=== PATIENT | female | born 1940 | race Caucasian/White ===

== ENCOUNTER 2017-09-22 11:33 | Emergency (ER) | payer OTHER ==
[~2017-09-22] VITALS: Ht 180.3 cm; Wt 127.0 kg
[~2017-09-22 11:33] MED LIST: LIDOCAINE TOP; MOT800 PO; NEXIUM PO; PROINH; V10 PO; XAN5 PO; ZOL50 PO
[2017-09-22 11:40] VITALS: Ht 180.3 cm; Wt 127.0 kg
[2017-09-22 12:29] LABS: microscopic required? NO
[2017-09-22 12:41] LABS: BASOPHIL % 0.6 % (0-2); PLATELET COUNT 202 x10^3mcL (130-400); RED CELL DISTRIBUTION WIDTH 14.4 % (11.5-14.5)
[2017-09-22 12:52] LABS: CALCIUM 8.6 mg/dL (8.5-10.1); CARBON DIOXIDE 35.6 mmol/L (21-32); CHLORIDE SERUM 109 mmol/L (98-107); CREATININE SERUM 0.8 mg/dL (0.6-1.0); GLUCOSE SERUM 109 mg/dL (74-106); POTASSIUM SERUM 4.7 mmol/L (3.5-5.1); SODIUM SERUM 147 mmol/L (136-145)
[2017-09-22 12:56] LABS: ALBUMIN 3.2 g/dL (3.4-5.0); ALKALINE PHOSPHATASE 84 U/L (46-116); ALT/SGPT 12 U/L (14-59); AST/SGOT 13 U/L (15-37); BILIRUBIN TOTAL 0.32 mg/dL (0.20-1.00); TOTAL PROTEIN, SERUM 6.9 g/dL (6.4-8.2)
[2017-09-22 13:11] LABS: UA SPECIFIC GRAVITY <=1.005 (1.005-1.035); urine erythrocyte NEGATIVE (NEGATIVE)
[2017-09-22] MEDS ORDERED: NEURONTIN300 MG GT (13:44)
[2017-09-22] MEDS ORDERED: XAN1 PO (13:45)
[2017-09-22] MEDS ORDERED: ZOLOFT100 MG PO (13:45)
[2017-09-22 15:06] VITALS: BP 174/89
== END 2017-09-22 15:06 | disposition home or self-care (01) ==
LOC: ED 11:33
PROVIDERS: Emergency Medicine
DX: M51.34 Other intervertebral disc degeneration, thoracic region (principal); I10 Essential (primary) hypertension; J45.909 Unspecified asthma, uncomplicated; F41.9 Anxiety disorder, unspecified; F32.9 Major depressive disorder, single episode, unspecified; K21.9 Gastro-esophageal reflux disease without esophagitis; G62.9 Polyneuropathy, unspecified; M81.0 Age-related osteoporosis without current pathological fracture; Z88.2 Allergy status to sulfonamides; Z88.1 Allergy status to other antibiotic agents; Z88.5 Allergy status to narcotic agent
CPT/HCPCS: J1885; J2405; J3010; J7030

== ENCOUNTER 2018-05-08 06:30 | Inpatient (IN) | payer OTHER ==
[~2018-05-08] VITALS: Ht 177.8 cm; Wt 133.4 kg
[~2018-05-08 06:30] MED LIST changes: +NEURONTIN300 MG GT; +XAN1 PO; +ZOLOFT100 MG PO
[2018-05-08 06:40] VITALS: Ht 177.8 cm; Wt 133.4 kg
[2018-05-08 07:16] LABS: BASOPHIL % 0.6 % (0-2); PLATELET COUNT 188 x10^3mcL (130-400); RED CELL DISTRIBUTION WIDTH 13.4 % (11.5-14.5)
[2018-05-08 07:36] LABS: CALCIUM 7.9 mg/dL (8.5-10.1); CARBON DIOXIDE 31.7 mmol/L (21-32); CHLORIDE SERUM 106 mmol/L (98-107); CREATININE SERUM 0.9 mg/dL (0.6-1.0); GLUCOSE SERUM 126 mg/dL (74-106); POTASSIUM SERUM 3.8 mmol/L (3.5-5.1); SODIUM SERUM 142 mmol/L (136-145)
[2018-05-08 07:46] LABS: ALKALINE PHOSPHATASE 77 U/L (46-116); ALT/SGPT 15 U/L (14-59); AST/SGOT 9 U/L (15-37); BILIRUBIN TOTAL 0.17 mg/dL (0.20-1.00); C REACTIVE PROTEIN 1.2 mg/dL (<=0.9); TOTAL PROTEIN, SERUM 6.6 g/dL (6.4-8.2)
[2018-05-08 07:47] LABS: T3 TOTAL 1.13 ng/mL
[2018-05-08 07:48] LABS: FREE T4 0.73 ng/dL (0.76-1.46); FREE THYROXINE INDEX 2.1 ug/dL (1.4-4.5); T4(THYROXINE) 5.9 ug/dL (4.7-13.3)
[2018-05-08 07:50] LABS: CK-MB 0.8 ng/mL (0-3.6)
[2018-05-08 07:51] LABS: ALBUMIN 2.8 g/dL (3.4-5.0)
[2018-05-08 09:53] LABS: ERYTHROCYTE SED RATE 48 mm/hr (0-30)
[2018-05-08] MEDS ORDERED: ZANAFLEX CAPSULE4 MG (12:19)
[2018-05-08] MEDS ORDERED: LISINOPRIL5 MG PO (12:19)
[2018-05-08 13:10] VITALS: BP 148/56
[2018-05-08 15:00] VITALS: BP 148/56
[2018-05-08 16:23] LABS: microscopic required? NO
[2018-05-08 16:26] LABS: UA SPECIFIC GRAVITY >=1.030 (1.005-1.035); urine erythrocyte NEGATIVE (NEGATIVE)
[2018-05-08 16:34] VITALS: BP 155/61
[2018-05-08 20:58] VITALS: BP 135/49
[2018-05-09 05:22] VITALS: BP 165/66
[2018-05-09 07:51] LABS: PLATELET COUNT 200 x10^3mcL (130-400); RED CELL DISTRIBUTION WIDTH 14.3 % (11.5-14.5)
[2018-05-09 07:53] LABS: CALCIUM 8.7 mg/dL (8.5-10.1); CARBON DIOXIDE 29.7 mmol/L (21-32); CHLORIDE SERUM 101 mmol/L (98-107); GLUCOSE SERUM 263 mg/dL (74-106); POTASSIUM SERUM 4.3 mmol/L (3.5-5.1); SODIUM SERUM 138 mmol/L (136-145)
[2018-05-09 07:56] LABS: BASOPHIL % 0 % (0-2)
[2018-05-09 09:23] VITALS: BP 155/59
[2018-05-09 12:36] VITALS: BP 151/79
[2018-05-09 17:08] VITALS: BP 158/68
[2018-05-09 21:23] VITALS: BP 151/69
[2018-05-10] VITALS (7 sets, daily range): BP systolic 140–152; BP diastolic 56–88
[2018-05-10 06:16] LABS: PLATELET COUNT 203 x10^3mcL (130-400); RED CELL DISTRIBUTION WIDTH 14.4 % (11.5-14.5)
[2018-05-10 06:23] LABS: CALCIUM 8.9 mg/dL (8.5-10.1); CARBON DIOXIDE 34.1 mmol/L (21-32); CHLORIDE SERUM 103 mmol/L (98-107); CREATININE SERUM 0.9 mg/dL (0.6-1.0); GLUCOSE SERUM 235 mg/dL (74-106); POTASSIUM SERUM 5.5 mmol/L (3.5-5.1); SODIUM SERUM 138 mmol/L (136-145)
[2018-05-10 06:29] LABS: BASOPHIL % 0 % (0-2)
[2018-05-11 06:10] LABS: BASOPHIL % 0.2 % (0-2); PLATELET COUNT 210 x10^3mcL (130-400); RED CELL DISTRIBUTION WIDTH 14.2 % (11.5-14.5)
[2018-05-11 06:29] LABS: CALCIUM 8.3 mg/dL (8.5-10.1); CARBON DIOXIDE 31.8 mmol/L (21-32); CHLORIDE SERUM 102 mmol/L (98-107); CREATININE SERUM 0.8 mg/dL (0.6-1.0); GLUCOSE SERUM 287 mg/dL (74-106); POTASSIUM SERUM 4.4 mmol/L (3.5-5.1); SODIUM SERUM 139 mmol/L (136-145)
[2018-05-11 06:32] VITALS: BP 147/60
[2018-05-11 09:18] VITALS: BP 153/60
[2018-05-11 13:16] VITALS: BP 148/53
[2018-05-11 14:26] VITALS: BP 148/53
[2018-05-11 18:01] VITALS: BP 152/60
== END 2018-05-11 18:51 | disposition short-term general hospital (02) | DRG 189 ==
LOC: ED 06:30 → DU 08:26
PROVIDERS: Specialist; ADMIT Internal Medicine
DX: J96.21 Acute and chronic respiratory failure with hypoxia (principal); J45.901 Unspecified asthma with (acute) exacerbation; J96.22 Acute and chronic respiratory failure with hypercapnia; G47.33 Obstructive sleep apnea (adult) (pediatric); K21.9 Gastro-esophageal reflux disease without esophagitis; F41.8 Other specified anxiety disorders; I10 Essential (primary) hypertension; M81.0 Age-related osteoporosis without current pathological fracture; E66.9 Obesity, unspecified; Z87.891 Personal history of nicotine dependence; Z68.35 Body mass index [BMI] 35.0-35.9, adult; Z91.19 Patient's noncompliance with other medical treatment and regimen
CPT/HCPCS: 36600; 84439; 90658; 97110-GP; 97112-GP; 97116-GP; 97530-GP; J0456; J0696; J1644; J2060; J2920; J2930; J7040; J7050; J7613; J7620; J7644; Q0092

== ENCOUNTER 2018-08-16 08:58 | Emergency (ER) | payer OTHER ==
[~2018-08-16] VITALS: Ht 177.8 cm; Wt 104.3 kg
[~2018-08-16 08:58] MED LIST changes: +LISINOPRIL5 MG PO; +ZANAFLEX CAPSULE4 MG
[2018-08-16 09:43] LABS: BASOPHIL % 0.3 % (0-2); PLATELET COUNT 210 x10^3mcL (130-400); RED CELL DISTRIBUTION WIDTH 14.4 % (11.5-14.5)
[2018-08-16 09:49] LABS: CALCIUM 8.3 mg/dL (8.5-10.1); CARBON DIOXIDE 29.7 mmol/L (21-32); CHLORIDE SERUM 101 mmol/L (98-107); CREATININE SERUM 1.1 mg/dL (0.6-1.0); GLUCOSE SERUM 173 mg/dL (74-106); POTASSIUM SERUM 4.8 mmol/L (3.5-5.1); SODIUM SERUM 137 mmol/L (136-145)
[2018-08-16 09:53] LABS: ALBUMIN 3.1 g/dL (3.4-5.0); ALKALINE PHOSPHATASE 73 U/L (46-116); ALT/SGPT 21 U/L (14-59); AST/SGOT 17 U/L (15-37); BILIRUBIN TOTAL 0.19 mg/dL (0.20-1.00); TOTAL PROTEIN, SERUM 6.7 g/dL (6.4-8.2)
[2018-08-16 11:43] VITALS: BP 150/97
== END 2018-08-16 11:43 | disposition short-term general hospital (02) ==
LOC: ED 08:58
PROVIDERS: Emergency Medicine
DX: I21.3 ST elevation (STEMI) myocardial infarction of unspecified site (principal); R09.02 Hypoxemia; R10.13 Epigastric pain; Z88.2 Allergy status to sulfonamides; Z88.5 Allergy status to narcotic agent; Z88.1 Allergy status to other antibiotic agents
CPT/HCPCS: 36415; 83880; Q0092

== ENCOUNTER 2019-06-02 16:06 | Emergency (ER) | payer OTHER ==
[~2019-06-02] VITALS: Ht 177.8 cm; Wt 124.7 kg
[2019-06-02 16:35] VITALS: Ht 177.8 cm; Wt 124.7 kg
[2019-06-02 17:30] VITALS: BP 124/72
== END 2019-06-02 17:30 | disposition home or self-care (01) ==
LOC: ED 16:06
DX: N39.0 Urinary tract infection, site not specified (principal)